=== PATIENT | male | born 1950 | race Two or more races ===

== ENCOUNTER 2023-10-18 11:32 | Inpatient (IN) | payer OTHER ==
[~2023-10-18] VITALS: Ht 175.3 cm; Wt 77.1 kg
[2023-10-18] MEDS: CLINDAMYCIN 300MG IV 50 ML IV ONE (12:21)
[2023-10-18] MEDS: SODIUM CHLORIDE 0.9% 1,000 ML IV ONE (12:21)
[2023-10-18 12:30] VITALS: PULSE 75; RESP 20; O2SAT 79
[2023-10-18 12:47] LABS: Anion Gap 13 (5-15); Carbon Dioxide 21 mmol/L (20-30); Chloride 97 mmol/L (98-107); Potassium 4.2 mmol/L (3.5-5.1); Sodium 131 mmol/L (136-145)
[2023-10-18 12:53] LABS: BUN/Creatinine Ratio 17.5 (10.0-20.0); Blood Urea Nitrogen 40 mg/dL (9-23); Glucose 390 mg/dL (74-106)
[2023-10-18 13:06] LABS: Basophils # (auto) 0 10 ^3/uL (0-0.2); Basophils % (auto) 0.3 % (0.0-2.0); Eosinophils # (auto) 0 10 ^3/uL (0-0.8); Eosinophils % (auto) 0.4 % (0.0-7.0); Hematocrit 35.6 % (41.0-53.0); Hemoglobin 11.7 g/dL (13.5-17.5); Lymphocytes # (auto) 0.6 10 ^3/uL (0.4-5.4); Lymphocytes % (auto) 8.4 % (10.0-50.0); Mean Corpuscular Hemoglobin 30.2 pg (28.0-32.0); Mean Corpuscular Hgb Conc. 32.9 g/dL (32.0-36.0); Mean Corpuscular Volume 91.8 fL (80.0-100.0); Monocytes # (auto) 0.5 10 ^3/uL (0-1.3); Neutrophils # (auto) 6.2 10 ^3/uL (1.6-8.6); Neutrophils % (auto) 83.9 % (37.0-80.0); Red Blood Cells 3.88 10^6/uL (4.5-5.90); Red Cell Distribution Width 13.3 % (11.8-14.3); White Blood Cell 7.4 10^3/uL (4.4-10.8)
[2023-10-18 13:08] LABS: Lactic Acid w/Reflex 2.8 mmol/L (0.4-2.0)
[2023-10-18] MEDS: PIPERACILLIN-TAZOB 3.375GM 100 ML IV ONE (13:30)
[2023-10-18] MEDS ORDERED: VANCOMYCIN PER PHARMACY 0 MG IV SCH (13:45)
[2023-10-18] MEDS ORDERED: MORPHINE SULFATE INJ 2 MG/ml SYRG IV PRN (13:45)
[2023-10-18] MEDS ORDERED: DOCUSATE SOD 100 MG CAP PO PRN (13:45)
[2023-10-18] MEDS ORDERED: ACETAMINOPHEN 325 MG TAB PO PRN (13:45)
[2023-10-18 14:01] VITALS: PULSE 75; RESP 20; O2SAT 79
[2023-10-18] MEDS ORDERED: DEXTROSE (50%) 50ML SYRG IV PRN (14:15)
[2023-10-18] MEDS: VANCOMYCIN 1GM/200ML 200 ML IV ONE (15:00)
[2023-10-18] MEDS: SODIUM CHLORIDE 0.9% 1,000 ML IV SCH (15:20)
[2023-10-18 17:14] LABS: Urine Bacteria None Seen /hpf (None Seen)
[2023-10-18 17:21] LABS: Urine Amorphous Crystal FEW /hpf (None Seen); Urine Blood 1+ /uL (Negative); Urine Clarity Clear (Clear); Urine Color Light-Yellow (Yellow); Urine Protein, UAD 1+ (Negative); Urine Specific Gravity 1.015 (1.001-1.035); Urine Urobilinogen Normal (Negative); Urine WBC 2 /hpf (0 - 3); Urine pH 5.5 (5.0-9.0)
[2023-10-18] MEDS: ACCU-CHEK COMFORT CURVE STRIP VI SCH (17:42)
[2023-10-18] MEDS: InsuLIN REG 1unit/0.01ml Soln (100units/ml) SC SCH ×2 (17:43→21:34)
[2023-10-18 18:43] VITALS: RESP 20; O2SAT 93
[2023-10-18 19:08] VITALS: BP 152/76; PULSE 82; RESP 19; TEMP 97.5; O2SAT 94
[2023-10-18] MEDS: ASCORBIC ACID 500 MG TAB PO SCH (21:25)
[2023-10-18] MEDS: HEPARIN SODIUM (PORCINE) 5000 UNITS/ML 1ML VIAL SC SCH (21:30)
[2023-10-18 21:39] VITALS: BP 154/78; PULSE 82; RESP 19; TEMP 97.8; O2SAT 92
[2023-10-19] VITALS (7 sets, daily range): BP systolic 126–160; BP diastolic 51–73; PULSE 60–75; RESP 16–19; TEMP 97.2–98.3; O2SAT 91–99
[2023-10-19] MEDS ORDERED: AMLO1TAB21 PO (06:58)
[2023-10-19] MEDS ORDERED: GLIP5TAB21 PO (06:58)
[2023-10-19] MEDS ORDERED: CARV6.2551 PO (06:58)
[2023-10-19] MEDS ORDERED: KETAMINE 50mg/ML 1ml syringe ONE (07:47)
[2023-10-19] MEDS ORDERED: MIDAZOLAM HCL 2MG/2ML 2ml VIAL (1mg/ml) ONE (07:47)
[2023-10-19] MEDS ORDERED: fentaNYL CITRATE 100 MCG/2 ML VL ONE (07:47)
[2023-10-19] MEDS ORDERED: PROPOFOL 10 MG/ML 20 ML IV ONE (07:47)
[2023-10-19] MEDS ORDERED: ONDANSETRON HCL 4 MG/2 ML VIAL ONE (07:47)
[2023-10-19] MEDS ORDERED: SODIUM CHLORIDE LOCK 10 ML ONE (07:47)
[2023-10-19] MEDS ORDERED: MEPERIDINE HCL (50 MG/ML) 1 ML VIAL ONE (07:47)
[2023-10-19] MEDS: LIDOCAINE 1% HCL (LOCAL ANESTH.) INJ 20ML MDV ONE (08:03)
[2023-10-19] MEDS: BUPIVACAINE 0.25% INJ 50ML VIAL ONE (08:03)
[2023-10-19] MEDS: ceFAZolin 2 GM/D5W50ml 50 ML IV ONE (08:51)
[2023-10-19] MEDS: cefTRIAXone 1GM/50ML D5W 50 ML IV SCH (09:24)
[2023-10-19] MEDS: MULTIPLE VITAMIN TAB PO SCH (09:24)
[2023-10-19] MEDS: ZINC SULFATE 220mg CAP or TAB PO SCH (09:24)
[2023-10-19] MEDS: metroNIDAZOLE 500 MG TAB PO SCH (15:05)
[2023-10-19] MEDS: VANCOMYCIN 1GM/200ML 200 ML IV SCH (15:05)
[2023-10-19] MEDS: CARVEDILOL 3.125 MG TAB PO SCH (22:22)
[2023-10-20] VITALS (8 sets, daily range): BP systolic 125–165; BP diastolic 67–87; PULSE 66–75; RESP 15–20; TEMP 97.5–98.1; O2SAT 92–98
[2023-10-20] MEDS: amLODIPine BESYLATE 5 MG TAB PO SCH (09:35)
[2023-10-20] MEDS: hydrALAZINE HCL 20 MG/ML VL IV PRN (17:36)
[2023-10-20] MEDS: amLODIPine BESYLATE 5 MG TAB PO ONE (19:56)
[2023-10-21] VITALS (7 sets, daily range): BP systolic 99–177; BP diastolic 64–154; PULSE 70–82; RESP 18–20; TEMP 97.5–98.6; O2SAT 80–99
[2023-10-21] MEDS: ONDANSETRON HCL 4 MG/2 ML VIAL IV PRN (01:48)
[2023-10-21 06:15] LABS: Potassium 3.7 mmol/L (3.5-5.1)
[2023-10-21 06:17] LABS: Calcium 8.8 mg/dL (8.5-10.1)
[2023-10-21 06:21] LABS: BUN/Creatinine Ratio 15.3 (10.0-20.0)
[2023-10-21 06:24] LABS: Phosphorus 4.5 mg/dL (2.4-5.1)
[2023-10-21] MEDS ORDERED: DAKINS HALF STR 0.25% (NaHypochlorite) 473 ML TOPICAL SOL TOP ONE (15:30)
[2023-10-21] MEDS: HYDROcodone-ACET 5/325MG TAB PO PRN (19:43)
[2023-10-21] MEDS: DAKINS HALF STR 0.25% (NaHypochlorite) 473 ML TOPICAL SOL TOP SCH (21:27)
[2023-10-21] MEDS: PANTOPRAZOLE 40 MG/10 ML VIAL INJ IV SCH (21:36)
[2023-10-22 01:00] VITALS: BP 151/75; PULSE 69; RESP 18; TEMP 97.5; O2SAT 96
[2023-10-22 06:55] LABS: Basophils # (auto) 0.1 10 ^3/uL (0-0.2); Basophils % (auto) 0.6 % (0.0-2.0); Eosinophils # (auto) 0.3 10 ^3/uL (0-0.8); Eosinophils % (auto) 2.8 % (0.0-7.0); Hematocrit 33.2 % (41.0-53.0); Hemoglobin 11.5 g/dL (13.5-17.5); Lymphocytes # (auto) 1.4 10 ^3/uL (0.4-5.4); Lymphocytes % (auto) 13.5 % (10.0-50.0); Mean Corpuscular Hemoglobin 31.4 pg (28.0-32.0); Mean Corpuscular Hgb Conc. 34.8 g/dL (32.0-36.0); Mean Corpuscular Volume 90.1 fL (80.0-100.0); Monocytes # (auto) 0.8 10 ^3/uL (0-1.3); Monocytes % (auto) 7.3 % (0.0-12.0); Neutrophils # (auto) 7.8 10 ^3/uL (1.6-8.6); Neutrophils % (auto) 75.8 % (37.0-80.0); Red Blood Cells 3.68 10^6/uL (4.5-5.90); Red Cell Distribution Width 13.1 % (11.8-14.3); White Blood Cell 10.3 10^3/uL (4.4-10.8)
[2023-10-22 07:40] LABS: Anion Gap 13 (5-15); Calcium 9.2 mg/dL (8.5-10.1); Carbon Dioxide 21 mmol/L (20-30); Chloride 107 mmol/L (98-107); Potassium 3.4 mmol/L (3.5-5.1); Sodium 141 mmol/L (136-145)
[2023-10-22 07:46] LABS: Blood Urea Nitrogen 27 mg/dL (9-23); Glucose 204 mg/dL (74-106)
[2023-10-22 07:47] LABS: Magnesium 1.8 mg/dL (1.6-2.6)
[2023-10-22 08:07] LABS: BUN/Creatinine Ratio 14.6 (10.0-20.0)
[2023-10-22 08:43] VITALS: BP 176/86; PULSE 74; RESP 18; TEMP 97.8; O2SAT 99
[2023-10-22] MEDS: VANCOMYCIN 1GM/200ML 200 ML IV SCH (10:43)
[2023-10-22 12:42] VITALS: BP 159/70; PULSE 68; RESP 18; TEMP 98; O2SAT 99
[2023-10-22 17:00] VITALS: BP 172/88; PULSE 74; RESP 18; TEMP 97.9; O2SAT 98
[2023-10-22 21:00] VITALS: BP 158/82; PULSE 82; RESP 17; TEMP 97.6; O2SAT 97
[2023-10-23 01:00] VITALS: BP 127/75; PULSE 75; RESP 17; TEMP 98.2; O2SAT 98
[2023-10-23 05:00] VITALS: BP 145/85; PULSE 77; RESP 17; TEMP 97.7; O2SAT 97
[2023-10-23] MEDS: amLODIPine BESYLATE 5 MG TAB PO SCH (08:55)
[2023-10-23 09:00] VITALS: BP 188/91; PULSE 75; RESP 18; TEMP 98; O2SAT 99
[2023-10-23 12:25] VITALS: BP 188/91; PULSE 74; TEMP 36.7
[2023-10-23 13:00] VITALS: BP 180/91; PULSE 75; RESP 18; TEMP 98; O2SAT 99
[2023-10-23 16:30] VITALS: BP 149/78; PULSE 78; RESP 16; TEMP 98.1; O2SAT 95
[2023-10-23] MEDS ORDERED: METR-344 PO (16:31)
== END 2023-10-23 18:59 | disposition home health service (06) | DRG 853 ==
LOC: ER 11:32 → OVERFLOW 14:01 → WEST WING 18:32
PROVIDERS: ADMIT Internal Medicine; ATTEND Internal Medicine
PROC: 0JBQ0ZZ Excision of Right Foot Subcutaneous Tissue and Fascia, Open Approach (ICD-10-PCS; 2023-10-19)
PROC: 0Y6N0ZF Detachment at Left Foot, Partial 5th Ray, Open Approach (ICD-10-PCS; principal; 2023-10-19 07:46)
DX: A41.9 Sepsis, unspecified organism (principal); J96.00 Acute respiratory failure, unspecified whether with hypoxia or hypercapnia; N17.0 Acute kidney failure with tubular necrosis; L02.611 Cutaneous abscess of right foot; M86.8X7 Other osteomyelitis, ankle and foot; E87.20 Acidosis, unspecified; I12.9 Hypertensive chronic kidney disease with stage 1 through stage 4 chronic kidney disease, or unspecified chronic kidney disease; E11.22 Type 2 diabetes mellitus with diabetic chronic kidney disease; N18.9 Chronic kidney disease, unspecified; E11.621 Type 2 diabetes mellitus with foot ulcer; L97.519 Non-pressure chronic ulcer of other part of right foot with unspecified severity; E11.69 Type 2 diabetes mellitus with other specified complication; Z79.4 Long term (current) use of insulin; Z83.3 Family history of diabetes mellitus; Z87.891 Personal history of nicotine dependence
CPT/HCPCS: 36415; 71045; 73630; 80048; 80069; 80202; 81001; 82565; 82962; 83036; 83605; 83735; 83880; 84484; 85025; 85379; 87040; 87070; 87075; 87077; 87186; 87205; 93306; 93925; C9113; G0378; J1815; J2001; J2250; J2405; J2543; J2704; J3490